=== PATIENT | female | born 1970 | race Caucasian/White ===

== ENCOUNTER 2017-05-26 15:47 | Emergency (ER) | payer BC, OTHER ==
[2017-05-26 16:19] VITALS: BP 113/68
[2017-05-26 17:45] LABS: UR Preg Internal Control QC Line Present
[2017-05-26 17:46] LABS: Manual Entry Verification MER0007
--- NOTE | 2017-05-26 18:35 | RAD ---
INDICATION: Back pain COMPARISON: None TECHNIQUE: Routine PA, lateral, and oblique imaging was performed . FINDINGS: Bones: There are no acute bony findings. There are minor osteoarthritic changes consisting of bony spur perforation at L3 and L4. Alignment: Normal Disc spaces: The disc spaces are well-maintained Soft tissues: There are no soft tissue abnormalities. IMPRESSION: NO ACUTE BONY FINDINGS. MINOR OSTEOARTHRITIS.
--- NOTE | 2017-05-26 19:18 | ED ---
Back Pain - HPI Summary HPI Summary: Pt here w/ back pain for couple of months. Noticed a pulling sensation on lower back while lifting a heavy box then. Was a little sore after but nothing that impaired ADL's. 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 Over the weekend, her pain became noticeably worse and this morning she had difficulty getting out of bed. Tried 5mg of flexeril which helped but she read that this was not healthy while breast feeding so doesn't want to take anymore( her 14 month old at night to help her sleep). She is also allergic to ASA so has not tried any other NSAID's. She use heat on her back in a recumbent position earlier today which seemed to be most comfortable. Worse w / bending, rotation, and cervical flexion. Denies radiating pain into gluteals or LE's and no weakness, tingling or numbness. "Threw" her back out once in physical therapy school - this was self-limiting and no issues since. No other back injuries/pathology to report. - History of Current Complaint Chief Complaint: EDBackInjuryPain Stated Complaint: BACK PAIN Time Seen by Provider: 05/26/17 16:17 Hx Obtained From: Patient, Family/Unbundler - Pain Intensity: 5 - Allergies/Home Medications Allergies/Adverse Reactions: Allergies Allergy/AdvReac Type Severity Reaction Status Date / Time Aspirin [ASA] Allergy Swelling Verified 05/26/17 16:41 Of Face,Lips,& Throat Penicillins [PCN] Allergy Anaphylatic Verified 05/26/17 16:41 Shock Sulfa Antibiotics Allergy Tachycardia Verified 05/26/17 16:41 PMH/Surg Hx/FS Hx/Imm Hx Previously Healthy: Yes Endocrine/Hematology History: Denies: Hx Anticoagulant Therapy, Hx Blood Disorders Musculoskeletal History: Denies: Hx Arthritis, Hx Back Problems, Hx Scoliosis Neurological History: Denies: Hx Headaches, Other Neuro Impairments/Disorders Infectious Disease History: No Infectious Disease History: Denies: Traveled Outside the [place] in Last 30 Days - Family History Known Family History: Positive: None - Social History Occupation: Employed Full-time Lives: With Family Alcohol Use: Occasionally Hx Substance Use: No - no caffeine at all Substance Use Type: Reports: None Hx Tobacco Use: No Smoking Status (MU): Never Smoked Tobacco Review of Systems Constitutional: Negative Negative: Fatigue Negative: Chest Pain Negative: Shortness Of Breath Negative: Abdominal Pain, Vomiting, Diarrhea Positive: no symptoms reported. Negative: hematuria, incontinence Musculoskeletal: Other - see HPI Skin: Negative Neurological: Negative Psychological: Normal All Other Systems Reviewed And Are Negative: Yes Physical Exam Triage Information Reviewed: Yes Vital Signs On Initial Exam: Initial Vitals Temp Pulse Resp BP Pulse Ox 97.5 F 68 20 113/75 97 05/26/17 15:51 05/26/17 15:51 05/26/17 15:51 05/26/17 15:51 05/26/17 15:51 Vital Signs Reviewed: Yes Appearance: Positive: Well-Appearing, Well-Nourished, Pain Distress - mild - appears uncomfortable transitioning into certain positions Skin: Positive: Warm, Dry - no erythema, no ecchymosis Head/Face: Positive: Normal Head/Face Inspection Eyes: Positive: EOMI ENT: Positive: Hearing grossly normal Respiratory/Lung Sounds: Positive: Breath Sounds Present Cardiovascular: Positive: Pulses are Symmetrical in both Upper and Lower Extremities. Negative: Leg Edema Left, Leg Edema Right Musculoskeletal: Positive: Strength/ROM Intact - LE's, Pain @ - Rt QL m TTP - spinous pp NTTP Neurological: Positive: Normal, Sensory/Motor Intact, Alert, Oriented to Person Place, Time, CN Intact II-III Psychiatric: Positive: Anxious - but calm and cooperative Diagnostics - Vital Signs Vital Signs Temp Pulse Resp BP Pulse Ox 05/26/17 16:14 98.1 F 68 16 113/68 98 05/26/17 15:51 97.5 F 68 20 113/75 97 - Laboratory Lab Results: Lab Results 05/26/17 Range/Units 17:00 Urine Test Negative (Negative) Lab Statement: Any lab studies that have been ordered have been reviewed, and results considered in the medical decision making process. Back Pain Course/Dx - Course Course Of Treatment: After much discussion about medication(s) that would be effective and safe during , pt//myself settled on prednisone w/ instructions to wait 4 hours after taking before . Pt and to f/u w/ PCP and return to ED if danger s/sx present. - Diagnoses Provider Diagnoses: Osteoarthritis of lumbar spine Discharge - Discharge Plan Condition: Stable Disposition: HOME Prescriptions: predniSONE TAB* [Deltasone TAB*] 40 mg PO DAILY #10 tab Patient Education Materials: Osteoarthritis (ED) Referrals: [facility] [Outside] Additional Instructions: Take prednisone 40mg in the morning for 5 mornings for pain control - this should reduce swelling in your spinal vertebrae. You may also continue heat and ice as well as trying salonpas pain patches over the counter. Follow-up with PCP in 1-2 weeks for recheck. Referral line included here. *If you develop weakness, numbness, incontinence of bowels/bladder, return to ED
[2017-05-26] MEDS ORDERED: Lidocaine Patch REMOVE* 1 NOTE MISC SCH (21:00)
[2017-05-27] MEDS ORDERED: Lidocaine PATCH 5%* 1 PATCH TRANSDERM ONE (16:40)
== END 2017-05-26 19:44 | disposition home or self-care (01) ==
LOC: ED 15:47
DX: M47.9 Spondylosis, unspecified (principal)
CPT/HCPCS: 72110; 81025; 99282

== ENCOUNTER 2019-02-05 20:52 | Emergency (ER) | payer BC, OTHER ==
[2019-02-05 21:09] VITALS: BP 93/57
--- NOTE | 2019-02-05 21:31 | UC ---
Lower Extremity/Ankle HPI - HPI Summary HPI Summary: 48-year-old woman comes in with a chief complaint of a right foot injury. Earlier today and worse stepped on her right mid foot. She quite a bit of pain right away. However she was able to weight-bear the rest of the day however the pain starting to get worse again. She did take some acetaminophen which did help the pain. No skin break. Denied any ankle pain although it to is also swollen. - History of Current Complaint Chief Complaint: UCLowerExtremity Stated Complaint: R FOOT INJURY Time Seen by Provider: 02/05/19 21:17 Hx Last Menstrual Period: 01/20/2019 Pain Intensity: 4 - Allergies/Home Medications Allergies/Adverse Reactions: Allergies Allergy/AdvReac Type Severity Reaction Status Date / Time aspirin Allergy Swelling Verified 02/05/19 21:11 Of Face,Lips,& Throat NSAIDS (Non-Steroidal Allergy Rash Verified 02/05/19 21:13 Anti-Inflamma Penicillins Allergy Anaphylatic Verified 02/05/19 21:11 Shock Sulfa (Sulfonamide Allergy Tachycardia Verified 02/05/19 21:12 Antibiotics) Home Medications: Home Medications Acetaminophen TAB* [Tylenol TAB*] 1,000 mg 02/05/19 [History] PMH/Surg Hx/FS Hx/Imm Hx Previously Healthy: Yes Other History Of: Negative For: Anticoagulant Therapy - Surgical History Surgical History: Yes Surgery Procedure, Year, and Place: appy 2006, tonsillectomy - Family History Known Family History: Positive: None - Social History Alcohol Use: Occasionally Substance Use Type: None Smoking Status (MU): Never Smoked Tobacco Review of Systems All Other Systems Reviewed And Are Negative: Yes Constitutional: Positive: Negative Skin: Positive: Bruising Eyes: Positive: Negative ENT: Positive: Negative Respiratory: Positive: Negative Cardiovascular: Positive: Negative Gastrointestinal: Positive: Negative Motor: Positive: Negative Neurovascular: Positive: Negative Musculoskeletal: Positive: Other: Neurological: Positive: Negative Psychological: Positive: Negative Is Patient Immunocompromised?: No Physical Exam Triage Information Reviewed: Yes Appearance: Well-Appearing, Well-Nourished, Pain Distress - WITH ROM Vital Signs: Initial Vital Signs Temp 98.6 F 02/05/19 21:00 Pulse 75 02/05/19 21:00 Resp 16 02/05/19 21:00 BP 93/57 02/05/19 21:00 Pulse Ox 99 02/05/19 21:00 Vital Signs Reviewed: Yes Eye Exam: Normal Eyes: Positive: Conjunctiva Clear Neck: Positive: Supple Respiratory: Positive: No respiratory distress Musculoskeletal: Positive: Other: - Left foot is tender to palpation mid foot on the dorsum. This area is also swollen. Normal capillary refill normal dorsalis pedis pulse. Toes have full range of motion. Ankles has full range of motion in the ankle is swollen but is nontender to palpation. Achilles tendon is intact. Neurological Exam: Normal Neurological: Positive: Alert, Muscle Tone Normal Psychological Exam: Normal Psychological: Positive: Normal Response To Family, Age Appropriate Behavior Skin: Positive: Other - ECCYMOSIS DORSUM OF LEFT FOOT Lower Extremity Course/Dx - Course Course Of Treatment: I discussed the x-rays with the patient I discussed the x-rays with the patient. I do not see any fractures radiologist reading is pending. Patient was placed in a postop shoe by nursing she is neurovascularly intact after placement of the postop shoe. Also patient was given crutches. Any weightbearing as tolerated. If not completely improved follow-up with sports medicine. If radiology sees a fracture that I did not see then the patient will follow-up with orthopedics. - Differential Dx/Diagnosis Provider Diagnosis: Crush injury of right foot Discharge - Sign-Out/Discharge Documenting (check all that apply): Patient Departure All imaging exams completed and their final reports reviewed: No - Discharge Plan Condition: Stable Disposition: HOME Patient Education Materials: Foot Contusion (ED), Foot Sprain (ED), Crush Injury (ED), Crutch Instructions (ED) Referrals: [facility] [Provider Group] Melodie Mar MD [Medical Doctor] - Additional Instructions: FOLLOW UP WITH SPORTS MEDICINE OR ORTHOPEDICS IF NOT COMPLETELY IMPROVED. GET REEVALUATED SOONER FOR WORSENING OF YOUR CONDITION OR QUESTIONS OR CONCERNS. - Billing Disposition and Condition Condition: STABLE Disposition: Home
--- NOTE | 2019-02-06 09:43 | UC ---
- Progress Note Progress Note: x-ray of the right foot, final report reviewed:NO EVIDENCE FOR FRACTURE, IF THE PATIENT'S SYMPTOMS PERSIST RECOMMEND FOLLOW-UP IMAGING. wet read correct. No change in plan. Course/Dx - Diagnoses Provider Diagnoses: Crush injury of right foot Discharge - Sign-Out/Discharge Documenting (check all that apply): Post-Discharge Follow Up All imaging exams completed and their final reports reviewed: Yes - Discharge Plan Condition: Stable Disposition: HOME Patient Education Materials: Crutch Instructions (ED), Foot Contusion (ED), Foot Sprain (ED), Crush Injury (ED) Referrals: [facility] [Provider Group] Melodie Mar MD [Medical Doctor] - Additional Instructions: FOLLOW UP WITH SPORTS MEDICINE OR ORTHOPEDICS IF NOT COMPLETELY IMPROVED. GET REEVALUATED SOONER FOR WORSENING OF YOUR CONDITION OR QUESTIONS OR CONCERNS. - Billing Disposition and Condition Condition: STABLE Disposition: Home
== END 2019-02-05 22:18 | disposition home or self-care (01) ==
LOC: UCEAST 20:52
DX: S97.81XA Crushing injury of right foot, initial encounter (principal); Z88.8 Allergy status to other drugs, medicaments and biological substances; Z88.0 Allergy status to penicillin; Z88.2 Allergy status to sulfonamides; X58.XXXA Exposure to other specified factors, initial encounter; Y92.9 Unspecified place or not applicable
CPT/HCPCS: 99212; G0463